=== PATIENT | female | born 1990 | race Caucasian/White ===

== ENCOUNTER 2016-12-25 10:50 | Emergency (ER) | payer OTHER ==
[~2016-12-25] VITALS: Ht 157.5 cm; Wt 83.5 kg
[~2016-12-25 10:50] MED LIST: LEVSIN0.125 M1 PO; ZOFRAN4 M2 PO
--- NOTE | 2016-12-25 12:56 | ED GI/GU/ABDOMINAL COMPLAINT ---
History of Present Illness General Chief Complaint: Abdominal Pain/Flank Pain Stated Complaint: ABD PAIN; RECTAL BLEEDING Source: patient Exam Limitations: no limitations Vital Signs & Intake/Output Vital Signs & Intake/Output Vital Signs Date Time Temp Pulse Resp B/P Pulse O2 O2 Flow FiO2 Ox Delivery Rate 12/25 1441 96.9 86 20 121/69 98 Room Air 12/25 1433 98 Room Air 12/25 1120 98.5 105 20 145/94 98 Room Air Room Air Allergies Uncoded Allergies: avacado (Swollen throat 04/24/16) Reconcile Medications Dicyclomine Hydrochloride (Bentyl) 10 MG CAPSULE 1 CAP PO TID IBS Hyoscyamine (Levsin) 0.125 MG TABLET 1 TAB PO Q4 PRN abdominal spasms Ondansetron HCl (Zofran) 4 MG TABLET 1 TAB PO Q6-8P PRN nausea Triage Note: PT TO ED WITH C/O LEFT ABD PAIN SINCE YESTERDAY, HX IBS, CONSIPATION TAKES COLACE. C/O NAUSEA, DENIES DIARRHEA. Triage Nurses Notes Reviewed? yes ? N Is pt currently ? No (N) Duration: better, intermittent Timing: recent history Quality/Severity: sharpness, severe, stabbing Severity Numbers: 8 Radiation: no radiation Activities at Onset: none HPI: Patient is a 26-year-old female with a past medical history of IBS remotely in which patient states that she has had generalized abdominal discomfort for some time now however in the past 24 hours patient noted a acute onset of intermittent sharp stabbing severe right flank pain that has come and gone which is new to her symptoms from her past medical history. Patient also reports intermittent bright red blood after bowel movements however does report of a history of hemorrhoids. Patient also notes. Blood after wiping on the tissue from a bowel movement. Denies any current rectal pain. Denies any nausea vomiting to tolerate by mouth. Last bowel movement was today no blood no melena noted. Patient currentlY C/O moderate left abdominal pain (CLEMENTE KENNEDY) Past History Travel History Traveled to [place] past 21 day No Medical History Any Pertinent Medical History? see below for history Neurological: migraine EENT: NONE Cardiovascular: NONE Respiratory: asthma Gastrointestinal: irritable bowel syndrome, CONSTIPTATION,NAUSEA Hepatic: NONE Renal: NONE Musculoskeletal: NONE Psychiatric: anxiety Endocrine: THYROID, NO MEDS Blood Disorders: NONE Cancer(s): NONE [employer]/Reproductive: NONE Surgical History Surgical History: N TONSILLECTOMY (TO) Psychosocial History What is your primary language Tajik Tobacco Use: Current Daily Use Daily Tobacco Use Amount/Type: => 5 Cigarettes daily ETOH Use: denies use Illicit Drug Use: denies illicit drug use Family History Hx Contributory? No (CLEMENTE KENNEDY) Review of Systems Review of Systems Constitutional: Reports: no symptoms. EENTM: Reports: no symptoms. Respiratory: Reports: no symptoms. Cardiovascular: Reports: no symptoms. GI: Reports: see HPI, abdominal pain. Genitourinary: Reports: see HPI. Musculoskeletal: Reports: no symptoms. Skin: Reports: no symptoms. Neurological/Psychological: Reports: no symptoms. Hematologic/Endocrine: Reports: no symptoms. Immunologic/Allergic: Reports: no symptoms. All Other Systems: Reviewed and Negative (CLEMENTE KENNEDY) Physical Exam Physical Exam General Appearance: no apparent distress, alert, comfortable Gastrointestinal: normal bowel sounds, soft, LEFT FLANK AND LOWER QUADRANT POINT TENDERNESS NOTED, NO REBOUND TENDERNESS NO RIGHT LOWER QUADRANT TENDERNESS AND RIGHT UPPER QUADRANT TENDERNESS NO PERITONEAL SIGNS Rectal: MILD NONTHROMBOSED EXTERNAL HEMORRHOIDS NOTED NONTENDER NO BLEEDING NO SURROUNDING FLUCTUANCE ERYTHEMA OR WARMTH bROWN STOOL NOTED AFTER DIGITAL RECTAL EXAM WAS PERFORMED NEGATIVE FECAL OCCULT BLOOD TEST Comments: Well-developed well-nourished person in no acute distress HEENT: Normal EENT exam, Neck: Supple, no lymphadenopathy, normal range of motion without pain or tenderness Back: Nontender, no CVA tenderness Cardiovascular: Regular rate and rhythms no murmurs rubs or gallops, normal JVP Respiratory: Chest nontender. No respiratory distress.breath sounds clear to auscultation bilaterally Extremity: No edema, no calf tenderness to palpation, normal and equal pulses. Neuro: Alert oriented x3, motor sensory normal Skin: No appreciable rash on exposed skin, skin is warm and dry. Psych: Mood and affect is normal, memory and judgment is normal. Core Measures ACS in differential dx? No Severe Sepsis Present: No Septic Shock Present: No (CLEMENTE KENNEDY) Progress Differential Diagnosis: AAA, AMI, appendicitis, biliary colic, bowel obstruction , colon cancer, cholecystitis, diverticulitis, ectopic , endometritis, esophageal varices, gastritis, hepatitis, hernia, hemorrhoids, ischemic bowel, inflamm bowel dis, intrauterine , kidney stone, Rula-Erika tear, ovarian cyst, ovarian torsion, pancreatitis, PID/cervicitis, peptic ulcer, PUD/ GERD, perforated viscous, SBO, threatened AB, UTI/pyelo Plan of Care: Orders Procedure Date/time Status URINE 12/25 1324 Complete URINALYSIS 12/25 1324 Complete COMPREHENSIVE METABOLIC PANEL 12/25 1324 Complete CBC WITHOUT DIFFERENTIAL 12/25 1324 Complete Laboratory Tests 12/25/16 1358: Urine Color YEL, Urine Clarity CLEAR, Urine pH 6.0, Ur Specific [place] 1.025, Urine Protein NEG, Urine Ketones NEG, Urine Nitrite NEG, Urine Bilirubin NEG, Urine Urobilinogen 0.2, Ur Leukocyte Esterase NEG, Ur Microscopic EXAM NOT REQUIRED, Urine Hemoglobin NEG, Urine Glucose NEG, Urine Test NEGATIVE 12/25/16 1345: Anion Gap 9, Estimated GFR > 60, BUN/Creatinine Ratio 11.4, Glucose 76, Calcium 9.3, Total Bilirubin 0.5, AST 17, ALT 35, Alkaline Phosphatase 79, Total Protein 7.2, Albumin 4.1, Globulin 3.1, Albumin/Globulin Ratio 1.3, CBC w Diff NO MAN DIFF REQ, RBC 4.65, MCV 87.5, MCH 29.9, RDW 13.3, MPV 7.5, Gran % 57.8, Lymphocytes % 32.1, Monocytes % 6.4, Eosinophils % 2.8, Basophils % 0.9, Absolute Granulocytes 7.8 H, Absolute Lymphocytes 4.3 H, Absolute Monocytes 0.9 H, Absolute Eosinophils 0.4, Absolute Basophils 0.1, PUBS MCHC 34.2 Patient on initial exam was in no apparent distress Patient had essentially unremarkable blood work and states that she has a history of chronic leukocytosis Patient had unremarkable urine analysis and at this time I did not suspect patient have nephrolithiasis. Patient has no right lower quadrant pain and no concerns of appendicitis. On discharge patient was instructed to follow-up with GI AND given all copies of blood work. She agrees with disposition and plan Due to history of present illness and exam findings there is suspicion of irritable bowel syndrome however fate patient had a negative fecal occult blood test and no concerns of external thrombosed hemorrhoid or abscess. Patient at this time does not require emergent warranting of CT scan images. On discharge patient looks well no apparent distress and will comply with instructions and had no questions (ANISA REID,CLEMENTE) Initial ED EKG: none (CLEMENTE KENNEDY) Departure Departure Disposition: HOME OR SELF CARE Condition: Stable Clinical Impression Primary Impression: Left flank pain Referrals: RUDOLPH PEREZ (PCP/Family) Additional Instructions: As discussed begin a 24-hour clear liquid and bland diet to rest your bowels. Begin the prescription of Bentyl for your abdominal complaints. This prescription is waiting at [facility] pharmacy. Continue home medications as directed especially your nausea medications if this occurs. FOLLOW UP WITH YOU GI DOCTOR Tomorrow IF Symptoms Still Continue AND Please Provide Them with the Blood Work Obtained in the Emergency Room Today. If Symptoms Worsen or If YOU Develop Any New concerning Symptoms Return to Emergency Room. Departure Forms: Customer Survey General Discharge Information Prescriptions: Current Visit Scripts Dicyclomine Hydrochloride (Bentyl) 1 CAP PO TID #9 CAP (CLEMENTE KENNEDY) PA/MEDICINE AND HEALTH SERVICE MANAGER Co-Sign Statement Statement: ED Attending supervision documentation- [] I saw and evaluated the patient. I have also reviewed all the pertinent lab results and diagnostic results. I agree with the findings and the plan of care as documented in the PA's/MEDICINE AND HEALTH SERVICE MANAGER's documentation. x I have reviewed the ED Record and agree with the PA's/MEDICINE AND HEALTH SERVICE MANAGER's documentation. [] Additions or exceptions (if any) to the PAs/MEDICINE AND HEALTH SERVICE MANAGER's note and plan are summarized below: [] (SUZIE SOLER,HUMBERTO)
[2016-12-25 13:54] LABS: ABSOLUTE BASOPHIL COUNT 0.1 /CUMM (0.0-0.2); ABSOLUTE EOSINOPHIL COUNT 0.4 /CUMM (0.0-0.7); ABSOLUTE GRANULOCYTE CT 7.8 /CUMM (1.4-6.5); ABSOLUTE LYMPH COUNT 4.3 /CUMM (1.2-3.4); ABSOLUTE MONOCYTE COUNT 0.9 /CUMM (0.10-0.60); BASOPHIL % 0.9 % (0.0-2.0); EOSINOPHIL % 2.8 % (0-5); HEMATOCRIT 40.7 % (37-47); MEAN CORPUSCULAR HGB 29.9 PG (27.0-31.0); MEAN CORPUSCULAR HGB CONC 34.2 G/DL (33.0-37.0); MEAN CORPUSCULAR VOLUME 87.5 FL (81.0-99.0); MEAN PLATELET VOLUME 7.5 FL (7.4-10.4); PLATELET COUNT 349 /CUMM (130-400); RBC DISTRIBUTION WIDTH 13.3 % (11.5-14.5); RED BLOOD CELL CT 4.65 /CUMM (4.20-5.40); WHITE BLOOD CELL COUNT 13.5 /CUMM (4.8-10.8)
[2016-12-25 14:09] LABS: GRANULOCYTE % 57.8 % (42.2-75.2)
[2016-12-25 14:41] VITALS: BP 121/69
[2016-12-25] MEDS ORDERED: BENTYL10 M1 PO (14:55)
== END 2016-12-25 15:14 ==
LOC: ERH 10:50
PROVIDERS: Physician Assistant
DX: R10.9 Unspecified abdominal pain (principal)
CPT/HCPCS: 81003; 81025